=== PATIENT | female | born 1945 | race Caucasian/White ===

== ENCOUNTER 2017-04-26 07:43 | Emergency (ER) | payer OTHER ==
[2017-04-26 07:47] VITALS: BP 158/86; PULSE 83; TEMP 97.9; BMI 26.1
[2017-04-26] MEDS ORDERED: DIPHTH,PERTUSS(ACELL),TET 0.5 ML DISP.SYRIN IM ONE (08:25)
--- NOTE | 2017-04-26 08:26 | PDOC ---
History of Present Illness - General Chief Complaint: Injury Stated Complaint: FALL/RIGHT HIP PAIN/LEFT HAND PAIN Time Seen by Provider: 04/26/17 08:18 History Source: Patient Exam Limitations: No Limitations - History of Present Illness Initial Comments: 04/26/17 09:52 71 yr female tripped and fell last night injured her left hand, right knee and hip. Pt denies hitting head no LOC no dizzyness. Pt is ambulating with a slight limp. 04/26/17 10:04 Severity: reports: mild Method of Injury: Yes: fall Loss of Consciousness: no loss of consciousness Past History - Past Medical History Allergies/Adverse Reactions: Allergies Allergy/AdvReac Type Severity Reaction Status Date / Time Penicillins Allergy Intermediate Verified 04/26/17 07:45 Home Medications: Ambulatory Orders Levothyroxine [Synthroid -] 75 mcg PO DAILY #0 tablet 08/10/11 Omeprazole [Prilosec] 40 mg PO DAILY #0 capsule. 08/10/11 Simvastatin [Zocor -] 40 mg PO HS 03/31/12 Anemia: No Asthma: No Cancer: No Cardiac Disorders: No CVA: No COPD: No CHF: No Dementia: No Diabetes: No GI Disorders: Yes (gerd) Disorders: No HTN: No Hypercholesterolemia: Yes Liver Disease: No Seizures: No Thyroid Disease: Yes (HYPOTHYROIDISM) - Surgical History Abdominal Surgery: No Appendectomy: No Cardiac Surgery: No Cholecystectomy: No Lung Surgery: No Neurologic Surgery: No Orthopedic Surgery: Yes (ORIF LEFT WRIST) - Suicide/Smoking/Psychosocial Hx Smoking Status: Yes Smoking History: Former smoker Have you smoked in the past 12 months: No Number of Cigarettes Smoked Daily: 0 If you are a former smoker, when did you quit?: 15 YRS AGO Information on smoking cessation initiated: No Hx Alcohol Use: No Drug/Substance Use Hx: No Substance Use Type: None Hx Substance Use Treatment: No Trauma Specific PMHX - Complaint Specific PMHX Arthritis: No Back Injury: No Neck Injury: No Hx Sacro Iliac Joint Dysfunction: No Review of Systems - Review of Systems Able to Perform ROS?: Yes Is the patient limited Maori proficient: No Constitutional: No: Symptoms Reported HEENTM: No: Symptoms Reported Respiratory: No: Symptoms reported Cardiac (ROS): No: Symptoms Reported ABD/GI: No: Symptoms Reported : No: Symptoms Reported Musculoskeletal: No: Symptoms Reported *Physical Exam - Vital Signs Last Vital Signs Temp Pulse Resp BP Pulse Ox 97.9 F 83 18 158/86 100 04/26/17 07:45 04/26/17 07:45 04/26/17 07:45 04/26/17 07:45 04/26/17 07:45 - Physical Exam General Appearance: Yes: Nourished, Appropriately Dressed HEENT: positive: EOMI, DAVID, Normal ENT Inspection, TMs Normal, Pharynx Normal Neck: positive: Supple. negative: Tender Respiratory/Chest: positive: Lungs Clear, Normal Breath Sounds. negative: Chest Tender Cardiovascular: positive: Regular Rhythm, Regular Rate Musculoskeletal: positive: Normal Inspection, Other (abrasion to right knee) Extremity: positive: Normal Capillary Refill, Normal Inspection, Normal Range of Motion, Tender (left hand, base of fifth finger, right upper thigh with soft tissue ttp , pt has FROM of the leg ) Integumentary: positive: Normal Color, Dry, Warm. negative: Rash, Swelling, Ecchymosis, Bruising Neurologic: positive: Fully Oriented, Alert, Normal Mood/Affect, Normal Response , Motor Strength 5/5 Procedures - Splinting Pre-Made Type: velcro (left wrist) ED Treatment Course - RADIOLOGY Radiology Studies Ordered: Category Date Time Status HAND- LEFT [RAD] Stat Radiology 04/26/17 08:25 Ordered HIP & PELVIS-RIGHT [RAD] Stat Radiology 04/26/17 08:25 Ordered KNEE 3 POS-RIGHT [RAD] Stat Radiology 04/26/17 08:25 Ordered Medical Decision Making - Medical Decision Making 04/26/17 09:59 cc: trip and fall last night no LOC no dizzyness pt has pain to left hand, right knee and right leg will xray to r/o fracture tetanus given, pt has abrasion to knee pt refused any pain meds at this time. 04/26/17 15:43 xray reports have been given to the patient all dc inst verbally given to the pt and her daughter who is a nurse. pt is aware of the finding on the distal radius, suspicious for acute vs chronic . Pt will follow with a wrist splint has been placed. *DC/Admit/Observation/Transfer Diagnosis at time of Disposition: Contusion Qualifiers: Encounter type: initial encounter Contusion area: hip Laterality: right Qualified Code(s): S70.01XA - Contusion of right hip, initial encounter - Discharge Dispostion Disposition: HOME Condition at time of disposition: Good - Referrals Referrals: Lizette Nevarez MD [Primary Care Provider] - - Patient Instructions Additional Instructions: take motrin or tylenol for pain as needed apply ice every 2hrs for 20 minutes for the next 2 days follow with your doctor in 2-3 days if any worsening pain you may need a cat scan if that is the case - Post Discharge Activity Forms/Work/School Notes: Back to Work, Parent(s) Back to Work Note
== END 2017-04-26 11:10 | disposition home or self-care (01) ==
LOC: JERFT 07:43 → JER 07:43 → JERFT 11:10
PROC: 3E0234Z Introduction of Serum, Toxoid and Vaccine into Muscle, Percutaneous Approach (ICD-10-PCS; principal; 2017-04-26)
DX: S70.01XA Contusion of right hip, initial encounter (principal); W01.0XXA Fall on same level from slipping, tripping and stumbling without subsequent striking against object, initial encounter; Y93.89 Activity, other specified; Y92.89 Other specified places as the place of occurrence of the external cause; Y99.8 Other external cause status; E03.9 Hypothyroidism, unspecified; K21.9 Gastro-esophageal reflux disease without esophagitis; E78.00 Pure hypercholesterolemia, unspecified; Z87.891 Personal history of nicotine dependence
CPT/HCPCS: 73130-TC-LT; 73523-TC; 73562-TC-RT; 90715; 99281-25

== ENCOUNTER 2018-02-22 10:13 | Emergency (ER) | payer OTHER ==
[2018-02-22 10:37] VITALS: TEMP 98.7; BMI 27.6
[2018-02-22] MEDS ORDERED: ACETAMINOPHEN 650 MG/20.3 ML ORAL SOLUTION (CUPS) PO ONE (10:42)
[2018-02-22] MEDS ORDERED: ACETAMINOPHEN 325 MG TABLET (FP) ONE (10:46)
--- NOTE | 2018-02-22 10:46 | PDOC ---
Attending Attestation - Resident Resident Name: Evgeny Luong - ED Attending Attestation I have performed the following: I have examined & evaluated the patient, The case was reviewed & discussed with the resident, I agree w/resident's findings & plan, Exceptions are as noted - HPI HPI: 02/22/18 10:42 72 F with hypothyroid, HLD presenting to ED after trip and fall. Pt was in endoscopy suite when her shoe got caught on the floor, causing patient to fall forward. Pt reports landing on her R knee and L hand and hitting her forehead against the floor. Denies LOC. Currently reports pain in her forehead, denies neck pain. Mild pain in R knee, no other injuries. - Physicial Exam PE: 02/22/18 10:44 GENERAL: Awake, alert, and fully oriented, in no acute distress. HEAD: + 3cm laceration to forehead EYES: PERRLA, EOMI, sclera anicteric, conjunctiva clear ENT: Auricles normal inspection, hearing grossly normal, nares patent, oropharynx clear without exudates. Moist mucosa NECK: Nontender, no stepoffs, Normal ROM, supple, no lymphadenopathy, JVD, or masses LUNGS: Breath sounds equal, clear to auscultation bilaterally. No wheezes, and no crackles HEART: Regular rate and rhythm, normal S1 and S2, no murmurs, rubs or gallops ABDOMEN: Soft, nontender, normoactive bowel sounds. No guarding, no rebound. No masses EXTREMITIES: + abrasion to R knee, no deformity or tenderness, bilateral wrists with no deformity or tenderness, no snuffbox tenderness, Normal range of motion , no edema. No clubbing or cyanosis. NEUROLOGICAL: Cranial nerves II through XII intact. 5/5 strength and sensation in all extremities, Normal speech, normal gait, normal cerebellar function SKIN: Warm, Dry, normal turgor, no rashes or lesions noted. - Medical Decision Making 02/22/18 10:45 72 F with mechanical fall. Exam notable for abrasion to R knee and laceration to forehead. Tetanus UTD. - CT head - XR R knee - Tylenol - Lac repair 02/22/18 12:09 CT and XRs unremarkable. Lac repaired w/ 3 sutures. Pt is well appearing, with normal vitals. Clinically stable for DC at this time. I discussed the physical exam findings, ancillary test results and final diagnoses with the patient. I answered all of the patient's questions. The patient was satisfied with the care received and felt comfortable with the discharge plan and treatment plan. The patient agrees to follow up with the primary care physician within 24-72 hours.
--- NOTE | 2018-02-22 11:03 | PDOC ---
History of Present Illness - General Chief Complaint: Injury Stated Complaint: RAPID RESPONSE Time Seen by Provider: 02/22/18 10:26 History Source: Patient Exam Limitations: No Limitations - History of Present Illness Initial Comments: 02/22/18 10:56 72 yo female pmh of hypothyroidism and osteoporosis presents to the ED after a mechanical fall around 10 am today. Patient came to the Hospital for an outpatient colonoscopy when she tripped due to a sticky floor and rubber shoes. Patient has a laceration on her forehead after falling and hitting her head. No LOC and not on any blood thinners. Denies N/V, headache, changes in speech, changes in vision, numbness or weakness on one side of her body. Also denies CP , palpitations, SOB. Patient admits to pain in the right knee and left wrist after the fall as well. Past History - Past Medical History Allergies/Adverse Reactions: Allergies Allergy/AdvReac Type Severity Reaction Status Date / Time Penicillins Allergy Intermediate Verified 01/03/18 11:15 Home Medications: Ambulatory Orders Simvastatin [Zocor -] 40 mg PO HS 03/31/12 Levothyroxine Sodium [Synthroid] 88 mcg PO HS 02/21/18 Omeprazole 40 mg PO DAILY 02/21/18 Anemia: No Asthma: No Cancer: No Cardiac Disorders: No CVA: No COPD: No CHF: No Dementia: No Diabetes: No GI Disorders: Yes (GERD) Disorders: No HTN: No Hypercholesterolemia: Yes Liver Disease: No Seizures: No Thyroid Disease: Yes (HYPOTHYROIDISM) - Surgical History Abdominal Surgery: No Appendectomy: No Cardiac Surgery: No Cholecystectomy: No Lung Surgery: No Neurologic Surgery: No Orthopedic Surgery: Yes (BROKEN L WRIST METAL PLATE PLACED) - Immunization History Immunization Up to Date: Yes - Suicide/Smoking/Psychosocial Hx Smoking Status: Yes Smoking History: Former smoker Have you smoked in the past 12 months: No Number of Cigarettes Smoked Daily: 0 If you are a former smoker, when did you quit?: 30YRS Information on smoking cessation initiated: No Hx Alcohol Use: No Drug/Substance Use Hx: No Substance Use Type: None Hx Substance Use Treatment: No Review of Systems - Review of Systems HEENTM: Yes: Other (laceration to the forehead). No: Blurred Vision, Double Vision Respiratory: No: Shortness of Breath Cardiac (ROS): No: Chest Pain, Lightheadedness, Palpitations ABD/GI: No: Nausea, Vomiting Musculoskeletal: No: Back Pain, Muscle Weakness, Neck Pain Neurological: No: Headache, Numbness, Paresthesia, Weakness, Unsteady Gait, Ataxia, Dizziness *Physical Exam - Vital Signs Last Vital Signs Temp Pulse Resp BP Pulse Ox 98.7 F 86 18 132/89 98 02/22/18 10:13 02/22/18 10:13 02/22/18 10:13 02/22/18 10:13 02/22/18 10:13 - Physical Exam General Appearance: Yes: Nourished, Appropriately Dressed. No: Apparent Distress HEENT: positive: EOMI, DAVID, Normal Voice. negative: Photophobia Neck: negative: Decreased range of motion, Tender lateral, Tender midline Respiratory/Chest: positive: Lungs Clear, Normal Breath Sounds. negative: Respiratory Distress, Crackles, Wheezing Cardiovascular: positive: Regular Rhythm, Regular Rate, S1, S2. negative: Edema , JVD, Murmur Vascular Pulses: Dorsalis-Pedis (R): 4+, Doralis-Pedis (L): 4+ Comments:: 02/22/18 11:09 normal radial pulses equal bilaterally Gastrointestinal/Abdominal: positive: Normal Bowel Sounds, Flat, Soft. negative : Pulsatile Mass, Distended, Guarding, Rebound, Tenderness Musculoskeletal: positive: Other (abrasion to right lateral knee normal ROM, sensation and strength equal bilaterally. Neurovascularly intact. Left wrist no snuffbox tenderness, neurovascularly intact, equal strength ROM and sensation when compared bilaterally.) Extremity: positive: Normal Capillary Refill. negative: Swelling Integumentary: positive: Normal Color, Dry, Warm. 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 negative : Facial Droop, Sensory Deficit, Confused, Disoriented Procedures - Laceration/Wound Repair Anterior Head Wound Length: 2.6 to 5.0 cm Wound Explored: clean Wound's Depth, Shape: superficial Irrigated w/ Saline: Yes Anesthesia: 1% Lidocaine Wound Repaired With: Sutures Suture Size/Type: 5:0 Number of Sutures: 3 Sterile Dressing Applied: Yes ED Treatment Course - RADIOLOGY Radiology Studies Ordered: Category Date Time Status HEAD CT WITHOUT CONTRAST [CT] Stat CT Scan 02/22/18 10:40 Ordered KNEE 3 POS-RIGHT [RAD] Stat Radiology 02/22/18 10:40 Ordered WRIST W/HAND-LEFT* [RAD] Stat Radiology 02/22/18 10:40 Ordered - Medications Given in the ED: ED Medications Discontinued Medications Generic Name Dose Route Start Last Admin Trade Name Ayanna PRN Reason Stop Dose Admin Acetaminophen 650 mg 02/22/18 10:42 02/22/18 10:48 Tylenol Oral Solution - PO 02/22/18 10:43 650 mg ONCE ONE Administration Medical Decision Making - Medical Decision Making 02/22/18 11:14 72 yo female pmh of osteoporosis presents to ED after a mechanical fall today. Laceration to the forehead and pain to the left wrist and right knee. Exam: extremities- neurovascularly intact and equal ROM, sensation and strength bilaterally. Head: 4cm linear laceration to forehead likely from glasses. Recent tetanus shot Neuro: CN2-12 grossly intact, normal peripheral vision, no unilateral weakness or sensory changes, normal finger to nose and heel to fernandez Plan: head CT non con r/o acute bleed Left wrist and right knee x ray r/o fracture All scans negative DC home after laceration repair. 02/22/18 12:11 Sterile technique, cleaned wound with NS 3 sutures 5-0 prop No complications *DC/Admit/Observation/Transfer Diagnosis at time of Disposition: Laceration of head Qualifiers: Encounter type: initial encounter Location of open wound of head: other part of head Foreign body presence: without foreign body Qualified Code(s): S01.81XA - Laceration without foreign body of other part of head, initial encounter - Discharge Dispostion Disposition: HOME Condition at time of disposition: Good Decision to Admit order: No - Referrals Referrals: Lizette Nevarez MD [Primary Care Provider] - - Patient Instructions Printed Discharge Instructions: How to Prevent Falls, DI for Closed Head Injury , DI for Moderate Sedation Additional Instructions: Please keep your wound clean and dry for the next 24 hours. After that period you can gently wash it with water. Follow up with either an urgent care, your PCP or come back to the Emergency Room to have your sutures removed 5-7 days from now. Try your best to keep the wound out of the sun for the next month to reduce possibility of scarring. Make a follow up appointment with your Primary care doctor within the next 2 days. Use over the counter Tylenol or Motrin for pain relief and take as directed. Thank you - Post Discharge Activity Forms/Work/School Notes: Back to Work
[2018-02-22 12:33] VITALS: BP 141/88; PULSE 88
== END 2018-02-22 12:33 | disposition home or self-care (01) ==
LOC: JER 10:13
PROC: 0HQ1XZZ Repair Face Skin, External Approach (ICD-10-PCS; principal; 2018-02-22)
DX: S01.81XA Laceration without foreign body of other part of head, initial encounter (principal); W01.0XXA Fall on same level from slipping, tripping and stumbling without subsequent striking against object, initial encounter; Y93.89 Activity, other specified; Y92.232 Corridor of hospital as the place of occurrence of the external cause; Y99.8 Other external cause status; K21.9 Gastro-esophageal reflux disease without esophagitis; E03.9 Hypothyroidism, unspecified; E78.00 Pure hypercholesterolemia, unspecified; Z88.0 Allergy status to penicillin
CPT/HCPCS: 70450-TC; 73110-TC-LR-FY; 73130-TC-LR-FY; 73562-TC-RT-FY; 99283-25

== ENCOUNTER 2018-03-01 09:43 | Day surgery (SDC) | payer OTHER ==
[2018-03-01 10:20] VITALS: BMI 27.6
[2018-03-01 11:25] VITALS: TEMP 97.7
[2018-03-01 13:01] VITALS: BP 128/75; PULSE 71
--- NOTE | 2018-03-02 16:43 | PATH ---
Surgical Pathology Report Patient Name: RAKESH MARMOLEJO [facility]. Rec. #: [id number] /Age/Gender: 1945 (Age: 72) / F Account: [id number] Location: [facility]-ENDOSCOPY Taken: 03/01/2018 Received: 03/01/2018 Reported: 03/02/2018 Physicians: Angel Vicente D.O. Specimen(s) Received A: BX HEPATIC FLEXURE POLYP B: DISTAL TRANSVERSE COLON POLYP C: BX 25 CM POLYP SIGMOID D: BX SIGMOID POLYPS (2) E: BX 15 CM SIGMOID POLYP F: BX RECTAL POLYPS Clinical History Rectal bleeding Postoperative diagnosis: Polyp, hemorrhoid Final Diagnosis A. HEPATIC FLEXURE, POLYP, BIOPSY: HYPERPLASTIC POLYP. B. DISTAL TRANSVERSE COLON POLYP, POLYPECTOMY: SESSILE SERRATED POLYP. C. SIGMOID COLON 25 CM, POLYP, BIOPSY: SESSILE SERRATED POLYP. D. SIGMOID, POLYPS (2), BIOPSY: SESSILE SERRATED POLYPS. E. SIGMOID, 15 CM, POLYP, BIOPSY: TUBULAR ADENOMA. F. RECTUM, POLYPS, BIOPSY: SESSILE SERRATED POLYPS. Electronically Signed Pam Key M.D. Gross Description A. Received in formalin, labeled "biopsy polyp hepatic flexure" is a flores, irregular portion of soft tissue measuring 0.4 cm. in greatest dimension. The specimen is submitted in toto in one cassette. B. Received in formalin, labeled "polyp distal transverse colon" are 2 flores, irregular portions of soft tissue measuring 0.1 and 0.4 cm. in greatest dimension. The specimens are submitted in toto in one cassette. C. Received in formalin, labeled "biopsy 25 cm sigmoid polyp" is a flores, irregular portion of soft tissue measuring 0.5 cm. in greatest dimension. The specimen is submitted in toto in one cassette. D. Received in formalin, labeled "biopsy sigmoid polyps (2)" are 3 flores, irregular portions of soft tissue averaging 0.3 cm. in greatest dimension. The specimens are submitted in toto in one cassette. E. Received in formalin, labeled "biopsy polyp 15 cm sigmoid" is a flores, irregular portion of soft tissue measuring 0.4 cm. in greatest dimension. The specimen is submitted in toto in one cassette. F. Received in formalin, labeled "biopsy rectal polyps" are 6 flores, irregular portions of soft tissue ranging from 0.1-0.4 cm. in greatest dimension. The specimens are submitted in toto in one cassette. 03/01/201803/01/2018
== END 2018-03-01 12:30 | disposition home or self-care (01) ==
LOC: JASU-ENDO 09:43
PROVIDERS: ATTEND Internal Medicine Gastroenterology
PROC: 0DBP8ZX Excision of Rectum, Via Natural or Artificial Opening Endoscopic, Diagnostic (ICD-10-PCS; 2018-03-01)
PROC: 0DBE8ZX Excision of Large Intestine, Via Natural or Artificial Opening Endoscopic, Diagnostic (ICD-10-PCS; 2018-03-01)
PROC: 0DBL8ZX Excision of Transverse Colon, Via Natural or Artificial Opening Endoscopic, Diagnostic (ICD-10-PCS; 2018-03-01)
PROC: 0DBN8ZX Excision of Sigmoid Colon, Via Natural or Artificial Opening Endoscopic, Diagnostic (ICD-10-PCS; 2018-03-01)
PROC: 3E0H8GC Introduction of Other Therapeutic Substance into Lower GI, Via Natural or Artificial Opening Endoscopic (ICD-10-PCS; 2018-03-01)
PROC: 0DBL8ZX Excision of Transverse Colon, Via Natural or Artificial Opening Endoscopic, Diagnostic (ICD-10-PCS; principal; 2018-03-01 10:45)
DX: Z12.11 Encounter for screening for malignant neoplasm of colon (principal); Z86.010 Personal history of colon polyps; D12.7 Benign neoplasm of rectosigmoid junction; D12.5 Benign neoplasm of sigmoid colon; D12.3 Benign neoplasm of transverse colon; K62.1 Rectal polyp
CPT/HCPCS: 88305-TC

== ENCOUNTER 2018-03-01 12:35 | Emergency (ER) | payer OTHER ==
[2018-03-01 12:41] VITALS: BP 108/65; PULSE 88; TEMP 98.2; BMI 27.6
--- NOTE | 2018-03-01 13:14 | PDOC ---
History of Present Illness - General Chief Complaint: Suture/Staple Removal(Here) Stated Complaint: STAPLE/SUTURE REMOVAL (HERE) Time Seen by Provider: 03/01/18 13:10 - History of Present Illness Initial Comments: 72-year-old female presents for suture removal from sutures placed on the forehead about a week or so ago. She's had no adverse events since suture placement. 03/01/18 13:12 Past History - Past Medical History Allergies/Adverse Reactions: Allergies Allergy/AdvReac Type Severity Reaction Status Date / Time Penicillins Allergy Intermediate Verified 01/03/18 11:15 Home Medications: Ambulatory Orders Simvastatin [Zocor -] 40 mg PO HS 03/31/12 Levothyroxine Sodium [Synthroid] 88 mcg PO HS 02/21/18 Omeprazole 40 mg PO DAILY 02/21/18 Anemia: No Asthma: No Cancer: No Cardiac Disorders: No CVA: No COPD: No CHF: No Dementia: No Diabetes: No GI Disorders: Yes (GERD) Disorders: No HTN: No Hypercholesterolemia: Yes Liver Disease: No Seizures: No Thyroid Disease: Yes (HYPOTHYROIDISM) - Surgical History Abdominal Surgery: No Appendectomy: No Cardiac Surgery: No Cholecystectomy: No Lung Surgery: No Neurologic Surgery: No Orthopedic Surgery: Yes (BROKEN L WRIST METAL PLATE PLACED) - Immunization History Immunization Up to Date: Yes - Suicide/Smoking/Psychosocial Hx Smoking Status: Yes Smoking History: Never smoked Have you smoked in the past 12 months: No Number of Cigarettes Smoked Daily: 0 If you are a former smoker, when did you quit?: 30YRS Information on smoking cessation initiated: No Hx Alcohol Use: No Drug/Substance Use Hx: No Substance Use Type: None Hx Substance Use Treatment: No Review of Systems - Review of Systems All Other Systems: Reviewed and Negative *Physical Exam - Vital Signs Last Vital Signs Temp Pulse Resp BP Pulse Ox 98.2 F 88 15 108/65 98 03/01/18 12:38 03/01/18 12:38 03/01/18 12:38 03/01/18 12:38 03/01/18 12:38 - Physical Exam Comments: 03/01/18 13:13 Wound of the forehead is clean dry and intact 3 6-0 Prolene sutures are present , The wound is well-healed with normal surrounding skin color and temperature no indication of infection Medical Decision Making - Medical Decision Making Using an 11 blade and Adson forceps 3 sutures were removed without complication 03/01/18 13:13 *DC/Admit/Observation/Transfer Diagnosis at time of Disposition: Visit for suture removal - Discharge Dispostion Disposition: HOME Condition at time of disposition: Stable Decision to Admit order: No - Referrals Referrals: Lizette Nevarez MD [Primary Care Provider] - - Patient Instructions Printed Discharge Instructions: DI for Suture Removal Additional Instructions: Return to the emergency room should symptoms worsen or go unresolved. He may wash the area with soap and water and leave it open to air. You do not need to cover this - Post Discharge Activity
== END 2018-03-01 13:16 | disposition home or self-care (01) ==
LOC: JERFT 12:35
DX: Z48.02 Encounter for removal of sutures (principal)
CPT/HCPCS: 99281-25

== ENCOUNTER 2018-08-23 08:02 | Day surgery (SDC) | payer OTHER ==
[2018-08-22 14:26] VITALS: BMI 29.9
[2018-08-23 09:44] VITALS: TEMP 96.3
[2018-08-23 12:09] VITALS: BP 131/82; PULSE 66
--- NOTE | 2018-08-24 15:51 | PATH ---
Surgical Pathology Report Patient Name: RAKESH MARMOLEJO [facility]. Rec. #: [id number] /Age/Gender: 1945 (Age: 72) / F Account: [id number] Location: ASU-ENDOSCOPY Taken: 08/23/2018 Received: 08/23/2018 Reported: 08/24/2018 Physicians: Angel Vicente D.O. Specimen(s) Received A: SIGMOID POLYP B: RECTAL POLYP Clinical History History of colon adenoma Postoperative diagnosis: Polyps Final Diagnosis A. SIGMOID POLYP AT 28 CM, POLYPECTOMY: HYPERPLASTIC POLYP. B. RECTAL POLYP, POLYPECTOMY: HYPERPLASTIC POLYP. Electronically Signed Fatou Castillo M.D. Gross Description A. Received in formalin, labeled "sigmoid polyp at 28 cm" is a flores, irregular portion of soft tissue measuring 0.2 cm. in greatest dimension. The specimen is submitted in toto in one cassette. B. Received in formalin, labeled "biopsy rectal polyp" are 3 flores, irregular portions of soft tissue ranging from 0.1-0.2 cm. in greatest dimension. The specimens are submitted in toto in one cassette. DL/08/23/2018 saudi08/23/2018
== END 2018-08-23 10:40 | disposition home or self-care (01) ==
LOC: JASU-ENDO 08:02
PROVIDERS: ATTEND Internal Medicine Gastroenterology
PROC: 0DBN8ZX Excision of Sigmoid Colon, Via Natural or Artificial Opening Endoscopic, Diagnostic (ICD-10-PCS; principal; 2018-08-23 09:00)
DX: K62.1 Rectal polyp (principal); K64.8 Other hemorrhoids; Z86.010 Personal history of colon polyps; Z09 Encounter for follow-up examination after completed treatment for conditions other than malignant neoplasm
CPT/HCPCS: 88305-TC

== ENCOUNTER 2018-10-25 11:37 | Day surgery (SDC) | payer OTHER ==
[2018-10-25 13:29] VITALS: BMI 29.2
[2018-10-25 15:50] VITALS: BP 141/83; PULSE 65; TEMP 97
--- NOTE | 2018-10-28 10:47 | PATH ---
Surgical Pathology Report Patient Name: RAKESH MARMOLEJO [facility]. Rec. #: [id number] /Age/Gender: 1945 (Age: 72) / F Account: [id number] Location: U-ENDOSCOPY Taken: 10/25/2018 Received: 10/26/2018 Reported: 10/28/2018 Physicians: Angel Vicente D.O. Specimen(s) Received A: ANTRUM NODULE R/O POLYP B: ANTRUM AND BODY C: GASTRIC POLYP D: DISTAL ESOPHAGUS R/O MAYNARD'S Clinical History f/u Maynard's esophagus. Post-operative diagnosis: gastritis, gastric polyp, hiatal hernia Final Diagnosis A. ANTRUM, NODULE R/O POLYP, BIOPSY: MILD CHRONIC GASTRITIS WITH FEATURES OF REACTIVE GASTROPATHY. IMMUNOSTAIN IS NEGATIVE FOR H. PYLORI ORGANISMS. B. ANTRUM AND BODY, BIOPSY: GASTRIC FUNDIC GLAND POLYP (S). IMMUNOSTAIN IS NEGATIVE FOR H. PYLORI ORGANISMS. C. GASTRIC POLYP, BIOPSY: GASTRIC FUNDIC GLAND POLYP. IMMUNOSTAIN IS NEGATIVE FOR H. PYLORI ORGANISMS. D. DISTAL ESOPHAGUS R/O MAYNARD'S, BIOPSY: ESOPHAGOGASTRIC JUNCTIONAL (SQUAMOCOLUMNAR) MUCOSA SHOWING INTESTINAL METAPLASIA, CONSISTENT WITH MAYNARD'S ESOPHAGUS IN CONJUNCTION WITH APPROPRIATE ENDOSCOPIC FINDINGS. NEGATIVE FOR DYSPLASIA. Electronically Signed Pam Key M.D. Gross Description A. Received in formalin, labeled "antral nodule r/o polyp" is one piece of light flores tissue measuring 0.3 cm in greatest dimension. Entirely submitted in one cassette. B. Received in formalin, labeled "antrum and body" are two pieces of light flores tissue measuring 0.2 cm and 0.3 cm in greatest dimension. Entirely submitted in one cassette. C. Received in formalin, labeled "gastric polyp" are two pieces of light flores tissue each measuring 0.3 cm in greatest dimension. Entirely submitted in one cassette. D. Received in formalin, labeled "distal esophagus r/o Maynard's" is one piece of glistening white tissue measuring 0.4 cm in greatest dimension. Entirely submitted in one cassette. AE/10/26/2018 ebram/10/26/2018
== END 2018-10-25 15:50 | disposition home or self-care (01) ==
LOC: JASU-ENDO 11:37
PROVIDERS: ATTEND Internal Medicine Gastroenterology
PROC: 0DB68ZX Excision of Stomach, Via Natural or Artificial Opening Endoscopic, Diagnostic (ICD-10-PCS; 2018-10-25)
PROC: 0DB48ZX Excision of Esophagogastric Junction, Via Natural or Artificial Opening Endoscopic, Diagnostic (ICD-10-PCS; principal; 2018-10-25 12:30)
DX: K29.50 Unspecified chronic gastritis without bleeding (principal); K31.9 Disease of stomach and duodenum, unspecified; K31.7 Polyp of stomach and duodenum; K44.9 Diaphragmatic hernia without obstruction or gangrene; K22.70 Barrett's esophagus without dysplasia; I10 Essential (primary) hypertension; E78.5 Hyperlipidemia, unspecified
CPT/HCPCS: 88305-TC; 88342-TC